=== PATIENT | male | born 1985 | race Caucasian/White ===

== ENCOUNTER 2018-08-09 19:38 | Emergency (ER) | payer SELFPAY ==
[~2018-08-09] VITALS: Ht 172.7 cm; Wt 86.2 kg
[2018-08-09 19:42] VITALS: BP 142/79
--- NOTE | 2018-08-09 19:42 | NUR ---
VISUAL ACUITY BOTH EYE 20/13, RT EYE 20/20, LT EYE 20/15 TO BED # 4 AMBULATORY, REPORT GIVEN TO CHELSEY RUSSELL
[2018-08-09] MEDS ORDERED: TETRACAINE HCL/PF 0.5% OPTH 4 ML BTL OP ONE (19:55)
[2018-08-09] MEDS ORDERED: FLUORESCEIN OPTH STRIP 0.6 MG OP ONE (19:55)
--- NOTE | 2018-08-09 20:10 | NUR ---
Dr. Ayala evaluating patient at bedside.
[2018-08-09 20:25] VITALS: BP 137/74
--- NOTE | 2018-08-09 20:25 | NUR ---
Patient discharged with v/s stable. Written and verbal after care instructions given and explained. Patient alert, oriented and verbalized understanding of instructions. Ambulatory with steady gait. All questions addressed prior to discharge. ID band removed. Patient advised to follow up with PMD. Rx of Erythromycin ophthal. travis, Motrin, and Orchard given. Patient educated on indication of medication including possible reaction and side effects. Opportunity to ask questions provided and answered.
== END 2018-08-09 20:25 | disposition home or self-care (01) ==
LOC: MED 19:38
DX: H10.211 Acute toxic conjunctivitis, right eye (principal); F17.200 Nicotine dependence, unspecified, uncomplicated
CPT/HCPCS: 99283

== ENCOUNTER 2022-12-20 10:32 | Emergency (ER) | payer SELFPAY ==
[~2022-12-20] VITALS: Ht 170.2 cm; Wt 77.6 kg
[2022-12-20 10:43] VITALS: BP 126/78
--- NOTE | 2022-12-20 10:46 | NUR ---
pt to 6 ambulatory
--- NOTE | 2022-12-20 11:40 | NUR ---
37YO MALE PT C/O L CHEST WALL PAIN XTODAY. REPORTS MECH FALL OVER WET FLOOR. PAIN AT MOST ON MOVEMENT. CHEST W/O VISIBLE INJURIES. -LOC -HEADINJURY -BLOODTHINNER. DENIES SOB, N/V/D OR TAKING MEDICATION. PT AAOX4, HOB POSITIONED PER COMFORT HX:DENIES NKA
--- NOTE | 2022-12-20 11:42 | NUR ---
xray at bedside
[2022-12-20 12:02] VITALS: BP_DIAS 78
--- NOTE | 2022-12-20 12:02 | NUR ---
Patient discharged with v/s stable. Written and verbal after care instructions FOR CHEST WALL PAIN given and explained. Patient verbalized understanding. Ambulatory with steady gait. All questions addressed prior to discharge. Advised to follow up with PMD.
--- NOTE | 2022-12-20 12:26 | NUR ---
The patient's care was reviewed and supervised by Leah Taylor RN.
== END 2022-12-20 12:02 | disposition home or self-care (01) ==
LOC: MED 10:32
DX: S20.212A Contusion of left front wall of thorax, initial encounter (principal); F17.200 Nicotine dependence, unspecified, uncomplicated; Z72.89 Other problems related to lifestyle; W18.30XA Fall on same level, unspecified, initial encounter; Y93.89 Activity, other specified; Y92.89 Other specified places as the place of occurrence of the external cause; Y99.8 Other external cause status
CPT/HCPCS: 71045; 93005; 99283; Q0092